=== PATIENT | female | born 1995 | race Caucasian/White ===

== ENCOUNTER 2023-01-19 08:08 | Emergency (ER) | payer OTHER, SELFPAY ==
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
[2023-01-19 08:12] VITALS: BP 133/82; PULSE 99; RESP 18; TEMP 36.6; O2SAT 98; BMI 26.0
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
[2023-01-19] MEDS: Cyclobenzaprine HCl 10 MG TABLET PO (09:37)
[2023-01-19] MEDS: Ketorolac Tromethamine 60 MG/2 ML VIAL IM (09:39)
== END 2023-01-19 10:28 | disposition home or self-care (01) ==
PROVIDERS: Emergency Provider Emergency Medicine
DX: S29.012A Strain of muscle and tendon of back wall of thorax, initial encounter (principal); S39.012A Strain of muscle, fascia and tendon of lower back, initial encounter; V43.52XA Car driver injured in collision with other type car in traffic accident, initial encounter; Y93.89 Activity, other specified; Y92.414 Local residential or business street as the place of occurrence of the external cause; Y99.9 Unspecified external cause status
CPT/HCPCS: 72070; 72100; 96372; 99283; 99284; J1885